=== PATIENT | female | born 1990 | race Caucasian/White ===

== ENCOUNTER → 2024-07-11 | Outpatient (CLI) | payer MEDICARE | LOC: M SOG 07:56 | PROVIDERS: ATTEND Physician Assistant | DX: Z53.9 Procedure and treatment not carried out, unspecified reason (principal) ==

== ENCOUNTER 2024-08-12 09:21 | Day surgery (SDC) | payer OTHER, SELFPAY ==
[~2024-08-12] VITALS: Ht 170.2 cm; Wt 58.4 kg
[~2024-08-12 09:21] MED LIST: KETOROLAC 60MG 2ML VIAL As Ordered ONE; LETR2.5T2 PO; LIDOCAINE 2% 100MG/5ML SDV (FOR ANES.) As Ordered ONE; MIDAZOLAM INJ 2MG/2ML VIAL As Ordered ONE; ONDANSETRON 4MG 2ML VIAL As Ordered ONE; fentaNYL 100 MCG/2 ML INJECTION As Ordered ONE; propofoL 200 MG/20 ML VIAL As Ordered ONE
[2024-08-12] MEDS ORDERED: LR 1,000 ML IV SCH (09:40)
[2024-08-12] MEDS: ceFAZolin 2 GM/D5W 50 ML IV BAG As Ordered ONE (10:07)
[2024-08-12] MEDS: BACITRACIN OINTMENT 30GM TUBE As Ordered ONE (10:23)
[2024-08-12 11:02] VITALS: BP 118/71; TEMP 98; O2SAT 97
== END 2024-08-12 11:04 | disposition home or self-care (01) ==
LOC: M SDC 09:21
PROVIDERS: ATTEND Orthopaedic Surgery Hand Surgery
DX: M67.442 Ganglion, left hand (principal); F41.9 Anxiety disorder, unspecified; F32.A Depression, unspecified
CPT/HCPCS: 26115; 88305; J0665; J0690; J1100; J1885; J2250; J2405; J3010